=== PATIENT | female | born 1995 | race Hispanic/Latino ===

== ENCOUNTER → 2018-11-16 | Outpatient (CLI) | payer OTHER ==
[~2018-11-16] MED LIST: IOPAMIDOL 370 MG/ML 200 ML INFUS..BTL INJ ONE; SODIUM CHLORIDE 0.9% 50ML 50 ML ONE
--- NOTE | 2018-11-16 11:57 | Diagnostic Imaging Report ---
CT of the abdomen and pelvis, with contrast, 11/16/2018. History: Left-sided abdominal pain with radiation to the back for 2 1/2 months. Comparison: None available. Technique: Multidetector CT scanning of the abdomen and pelvis was performed from the level of the lung bases to the inferior pubic rami after intravenous without oral administration of contrast. Coronal and sagittal multiplanar reformations were obtained. RADIATION DOSE: Total DLP: 362 mGy*cm Dose modulation, iterative reconstruction, and/or weight based adjustment of the mA/kV was utilized to reduce the radiation dose to as low as reasonably achievable. Discussion: LUNG BASES: No visualized abnormalities. ABDOMEN: The liver, gallbladder, biliary tree, spleen, pancreas, adrenal glands, and kidneys are normal. The hepatic vein, portal vein, and splenic vein are patent. The abdominal aorta is within normal limits for size. Evaluation of bowel is limited without oral contrast. There is no bowel dilatation. The appendix is visualized and is normal. There is no evidence of adenopathy or free fluid. PELVIS: The bladder, uterus, adnexa are normal in appearance. There is no evidence of free fluid or adenopathy. BONES AND SOFT TISSUES: Degenerative changes are present throughout the lumbar spine without evidence of lytic or sclerotic lesion. IMPRESSION: Normal CT of the abdomen and pelvis. No evidence of cholelithiasis, nephrolithiasis, bowel obstruction, or appendicitis. Signed by: Abundio Bergeron on 11/16/2018 11:53 AM
== END ==
LOC: CT 09:37
PROVIDERS: ATTEND Family Medicine
DX: R10.9 Unspecified abdominal pain (principal); G89.29 Other chronic pain
CPT/HCPCS: 74177; 81025; Q9967